=== PATIENT | female | born 1980 | race African-American/Black ===

== ENCOUNTER 2016-08-10 09:46 | Emergency (ER) | payer MEDICAID ==
[~2016-08-10] VITALS: Ht 162.6 cm; Wt 140.0 kg
[~2016-08-10 09:46] MED LIST: MACR100C37 PO; PREN0.01 PO
[2016-08-10 09:47] VITALS: BP 140/77; PULSE 83; RESP 12; TEMP 98.4; O2SAT 98
--- NOTE | 2016-08-10 11:23 | PD ---
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 Patient states that ever since her delivery she has had irregular bleeding. She'll bleed for 2 days and then it' ll resolve and she'll have bleeding again. Bleeding is mild, never having up to where she has to use more than 3 pads/tampons in a day. She is concerned that her vaginal discharge may be abnormal as she states that her partner, whom she had sex with while still , was diagnosed with Trichomonas. Patient has not had any vaginal intercourse since . She has yet to follow up with Dr. 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 DEPOSIT ENTRY CLERK [facility] Past Medical History Diminished Hearing: No ?: Unknown : 3 Para: 1 Miscarriage: 1 Social History Alcohol Use: No Tobacco Use: No Substance Use: No Allergies-Medications (Allergen,Severity, Reaction): Coded Allergies: No Known Allergies (Verified , 10/05/10) Reported Meds & Prescriptions Reported Meds & Active Scripts Active Macrodantin (Nitrofurantoin Macrocrystals) 100 Mg Cap 100 Mg PO BID Vit ( Plus) (Prenat Multivit/Erhard/Iron/Folic Ac) Tab 1 Tab PO DAILY Review of Systems Except as stated in HPI: all other systems reviewed are Neg Physical Exam Narrative GENERAL: Well-appearing female in no acute distress SKIN: Warm and dry. HEAD: Normocephalic. EYES: no scleral icterus. No injection or drainage. ENT: Mucous membranes pink and moist. NECK: Supple CARDIOVASCULAR: Regular rate and rhythm. RESPIRATORY: No accessory muscle use. GASTROINTESTINAL: Abdomen soft, non-tender, nondistended. Obese GENITOURINARY: Brownish vaginal discharge, with dried blood, no cervical erythema. Unremarkable bimanual exam MUSCULOSKELETAL: Normal gait NEUROLOGICAL: Awake and alert. Normal speech. PSYCHIATRIC: Appropriate mood and affect; insight and judgment normal. Data Data Last Documented VS Vital Signs Date Time Temp Pulse Resp B/P Pulse Ox O2 Delivery O2 Flow Rate FiO2 08/10/16 09:47 98.4 83 12 140/77 98 Room Air Orders Gc And Chlamydia Pcr (2/14/17 10:57) Wet Prep Profile (08/10/16 10:57) Labs Laboratory Tests Test 08/10/16 11:07 Clue Cells (Wet Prep) NONE SEEN Vaginal Trichomonas (Wet Prep) NONE SEEN Vaginal Yeast (Wet Prep) NONE SEEN MDM Medical Decision Making Medical Screen Exam Complete: Yes Emergency Medical Condition: Yes Medical Record Reviewed: Yes Differential Diagnosis 35-year-old female here with complaint of irregular vaginal bleeding since vaginal delivery 8 weeks ago, questionably abnormal vaginal discharge. Symptoms seem most consistent with normal menstrual irregularities. She does not have any heavy bleeding or cramping to suggest retained products. On exam here, her her blood is old, brownish tinged vaginal discharge. Her discharge appears physiologic. No risk of given lack of intercourse since delivery. With her possible trichomonas exposure STDs are on the differential though less likely. Narrative Course GC and chlamydia were sent but I would not empirically treat her based on her symptoms at this time. Wet prep was unremarkable. Patient was reassured and encouraged to follow up with DIVIDEND DEPOSIT ENTRY CLERK for visit. Diagnosis Primary Impression: Vaginal discharge Referrals: BRITTANEY COVINGTON M.D. call for appointment Additional Instructions: Wetprep today was negative for trichomonas, bacterial vaginosis, or yeast infection. Followup with Dr. Naidu for post appointment. Med/Other Pt SpecificInfo: No Change to Meds Disposition: 01 DISCHARGE HOME Condition: Jo Stringer MD Aug 10, 2016 11:23
[2016-08-10 17:09] LABS: CHLAMYDIA PCR NOT DETECTED (NOT DETECT); NEISSERIA PCR NOT DETECTED (NOT DETECT)
== END 2016-08-10 11:35 | disposition home or self-care (01) ==
LOC: NETRI 09:46
DX: N89.8 Other specified noninflammatory disorders of vagina (principal); Z20.2 Contact with and (suspected) exposure to infections with a predominantly sexual mode of transmission
CPT/HCPCS: 87210; 87491; 87591; 99283

== ENCOUNTER 2017-02-07 15:44 | Emergency (ER) | payer MEDICAID ==
[~2017-02-07] VITALS: Ht 162.6 cm; Wt 136.0 kg
[2017-02-07 15:45] VITALS: BP 142/87; PULSE 95; RESP 20; TEMP 100.4; O2SAT 99
--- NOTE | 2017-02-07 15:52 | PD ---
Physical Exam Time Seen by Provider: 15:52 Narrative 36yo F c/o RUQ abd pain x 2-3 weeks. Denies N, V, Fever. Fever in triage 100.4 Patient seen in triage. VS reviewed. Awaiting bed placement. Data Data Last Documented VS Vital Signs Date Time Temp Pulse Resp B/P Pulse Ox O2 Delivery O2 Flow Rate FiO2 02/07/17 15:45 100.4 95 20 142/87 99 Room Air MDM Supervised Visit with TEODORO: Diana Vargas Feb 07, 2017 15:52
--- NOTE | 2017-02-07 16:49 | PD ---
HPI . pelvic pain x 5 months Chief Complaint: Abdominal Pain Time Seen by Provider: 16:49 Travel History International Travel<30 days: No Contact w/Intl Traveler<30days: No Traveled to known affect area: No History of Present Illness HPI 36-year-old female who recently had tubal ligation in August of this year here now complaining of lower abdominal pain that has been going on for the past 5 months. The pain is located in the pelvic area. She says her partner was recently tested for STDs and negative and she is here for similar. She admits to a slight discharge that seems clear. She admits to unprotected sex. She wants to be checked for HPV etc and wants to make sure "down there" looks ok. PFSH Past Medical History Diminished Hearing: No ?: Not LMP: december : 3 Para: 1 Miscarriage: 1 Social History Alcohol Use: No Tobacco Use: No Substance Use: No Allergies-Medications (Allergen,Severity, Reaction): Coded Allergies: No Known Allergies (Verified , 10/05/10) Reported Meds & Prescriptions Reported Meds & Active Scripts Active Review of Systems General / Constitutional: No: Fever Eyes: No: Visual changes HENT: No: Headaches Cardiovascular: No: Chest Pain or Discomfort Respiratory: No: Shortness of Breath Gastrointestinal: No: Abdominal Pain Genitourinary: Positive: Pelvic Pain, Discharge, No: Dysuria Musculoskeletal: No: Pain Skin: No Rash Neurologic: No: Weakness Psychiatric: No: Depression Endocrine: No: Polydipsia Hematologic/Lymphatic: No: Easy Bruising Physical Exam Narrative GENERAL: AAO x 3, no acute distress, Well-nourished, well-developed patient. mobidly obese SKIN: Warm and dry. No visible rashes or bruising. HEAD: Normocephalic and atraumatic. EYES: No scleral icterus. No injection or drainage. EOM intact, PERRLA ENT: No nasal drainage noted. Mucous membranes pink. Airway patent. NECK: Supple, trachea midline. No JVD. CARDIOVASCULAR: Regular rate and rhythm without murmurs, gallops, or rubs. RESPIRATORY: Breath sounds equal bilaterally. No accessory muscle use. No rhonchi or rales. GASTROINTESTINAL: Abdomen soft, non-tender, nondistended. PELVIC: MO RN present: + vaginal discharge and cervical motion tenderness EXTREMITIES: No cyanosis or edema. BACK: Nontender without obvious deformity. No CVA tenderness. NEURO: CN II-12 intact, senior test analyst strength normal b/l, UE and LE 5/5, no focal deficits PSYCH: AAO x 3, normal affect. Data Data Last Documented VS Vital Signs Date Time Temp Pulse Resp B/P Pulse Ox O2 Delivery O2 Flow Rate FiO2 02/07/17 18:46 99.4 02/07/17 15:45 95 20 142/87 99 Room Air Orders Gc And Chlamydia Pcr (02/07/17 17:02) Wet Prep Profile (02/07/17 17:02) Complete Blood Count With Diff (02/07/17 17:03) Comprehensive Metabolic Panel (02/07/17 17:) Lipase (02/07/17 17:) Lactic Acid (02/07/17 17:03) Urinalysis - C+S If Indicated (02/07/17 17:03) Iv Access Insert/Monitor (02/07/17 17:03) Ecg Monitoring (02/07/17 17:03) Oximetry (02/07/17 17:03) Sodium Chloride 0.9% Flush (Ns Flush) (02/07/17 17:15) Blood Culture (02/07/17 17:03) Ceftriaxone Inj (Rocephin Inj) (02/07/17 19:00) Lidocaine 1% Inj (50 Ml) (Xylocaine 1% I (02/07/17 19:00) Azithromycin Powd Pack (Zithromax Powd P (02/07/17 19:00) Ceftriaxone Inj (Rocephin Inj) (02/07/17 19:00) Labs Laboratory Tests Test 02/07/17 02/07/17 17:22 17:40 White Blood Count 7.3 TH/MM3 Red Blood Count 4.53 MIL/MM3 Hemoglobin 13.1 GM/DL Hematocrit 37.6 % Mean Corpuscular Volume 83.1 FL Mean Corpuscular Hemoglobin 29.0 PG Mean Corpuscular Hemoglobin 34.9 % Concent Red Cell Distribution Width 13.3 % Platelet Count 232 TH/MM3 Mean Platelet Volume 8.9 FL Neutrophils (%) (Auto) 48.9 % Lymphocytes (%) (Auto) 43.0 % Monocytes (%) (Auto) 5.2 % Eosinophils (%) (Auto) 2.3 % Basophils (%) (Auto) 0.6 % Neutrophils # (Auto) 3.6 TH/MM3 Lymphocytes # (Auto) 3.1 TH/MM3 Monocytes # (Auto) 0.4 TH/MM3 Eosinophils # (Auto) 0.2 TH/MM3 Basophils # (Auto) 0.0 TH/MM3 CBC Comment DIFF FINAL Differential Comment Urine Color YELLOW Urine Turbidity HAZY Urine pH 6.0 Urine Specific Noti 1.032 Urine Protein TRACE mg/dL Urine Glucose (UA) NEG mg/dL Urine Ketones NEG mg/dL Urine Occult Blood NEG Urine Nitrite NEG Urine Bilirubin NEG Urine Urobilinogen 2.0 MG/DL Urine Leukocyte Esterase NEG Urine RBC 1 /hpf Urine WBC 1 /hpf Urine Squamous Epithelial 6 /hpf Cells Urine Mucus FEW /lpf Microscopic Urinalysis Comment CULT NOT INDICATED Sodium Level 138 MEQ/L Potassium Level 3.7 MEQ/L Chloride Level 105 MEQ/L Carbon Dioxide Level 24.3 MEQ/L Anion Gap 9 MEQ/L Blood Urea Nitrogen 13 MG/DL Creatinine 0.85 MG/DL Estimat Glomerular Filtration 93 ML/MIN Rate Random Glucose 83 MG/DL Lactic Acid Level 0.5 mmol/L Calcium Level 8.8 MG/DL Total Bilirubin 0.5 MG/DL Aspartate Amino Transf 12 U/L (AST/SGOT) Alanine Aminotransferase 18 U/L (ALT/SGPT) Alkaline Phosphatase 154 U/L Total Protein 8.2 GM/DL Albumin 3.5 GM/DL Lipase 135 U/L Clue Cells (Wet Prep) NONE SEEN Vaginal Trichomonas (Wet Prep) NONE SEEN Vaginal Yeast (Wet Prep) NONE SEEN MDM Medical Decision Making Medical Screen Exam Complete: Yes Emergency Medical Condition: Yes Medical Record Reviewed: Yes Differential Diagnosis PID, vaginitis, Gonorrhea, Chlamydia, Narrative Course 36-year-old female here with complaints of pelvic discomfort and vaginal discharge. On examination there was no reproducible abdominal or pelvic pain. Pelvic exam revealed slight discharge that was clear, but there was cervical motion tenderness present. Samples were collected. There is no evidence of BV, trichomoniasis or yeast. I discussed this with the patient. I explained that gonorrhea and chlamydia are still pending. However, with her cervical motion tenderness I do recommend prophylactic treatment for PID. She has accepted this recommendation. Rocephin and azithromycin here in the ED. I recommend outpatient follow-up for her routine Pap smear. I have discussed this case with my attending Dr. Carballo. He is in agreement with the recommendations. Patient verbalized understanding of instructions, questions were answered, and thanked me for their care. I advised them if their condition worsens, please return to the nearest emergency room for further care. Diagnosis Primary Impression: Vaginal discharge Additional Impression: PID (acute pelvic inflammatory disease) Referrals: Mobility Engineer Patient Instructions: General Instructions Additional Instructions: Please follow-up with the engineer conductor for routine Pap smear. Disposition: 01 DISCHARGE HOME Condition: Stable Sasha Ledesma Feb 07, 2017 16:49
[2017-02-07] MEDS ORDERED: SODIUM CHLORIDE 0.9% FLUSH 10 ML FLUSH IV FLUSH PRN (17:15)
[2017-02-07 17:54] LABS: AUTOMATED NEUTROPHIL # 3.6 TH/MM3 (1.8-7.7); BASOPHIL % 0.6 % (0.0-2.0); EOSINOPHIL # 0.2 TH/MM3 (0-0.4); EOSINOPHIL % 2.3 % (0.0-4.0); HEMATOCRIT 37.6 % (35.0-46.0); HEMO FLAGS DIFF FINAL; LYMPHOCYTE # 3.1 TH/MM3 (1.0-4.8); MEAN CELL VOLUME 83.1 FL (80.0-100.0); MEAN CORPUSCULAR HGB CONC 34.9 % (32.0-36.0); MONO % 5.2 % (0.0-8.0); NEUT % 48.9 % (16.0-70.0); PLATELET COUNT 232 TH/MM3 (150-450); RED BLOOD COUNT 4.53 MIL/MM3 (4.00-5.30); RED CELL DISTRIBUTION WIDTH 13.3 % (11.6-17.2); WHITE BLOOD COUNT 7.3 TH/MM3 (4.0-11.0)
[2017-02-07 17:58] LABS: BLOOD, URINE NEG (NEG); COMMENT (UR) CULT NOT INDICATED; CULTURE IF INDICATED CULT NOT INDICATED; GLUCOSE,URINE NEG (NEG); KETONE, URINE NEG (NEG); MUCUS URINE FEW /lpf (OCC); NITRITE,URINE NEG (NEG); SQUAMOUS EPITHELIAL CELL URINE 6 /hpf (0-5); URINE COLOR YELLOW (YELLW/STRAW)
[2017-02-07 18:07] LABS: ALT (GPT) 18 U/L (10-53); ANION GAP 9 MEQ/L (5-15); AST (GOT) 12 U/L (15-37); BICARBONATE 24.3 MEQ/L (21.0-32.0); BLOOD UREA NITROGEN 13 MG/DL (7-18); CHLORIDE 105 MEQ/L (98-107); GLOMERULAR FILTRATION RATE 93 ML/MIN (>89); POTASSIUM 3.7 MEQ/L (3.5-5.1); SODIUM (NA) 138 MEQ/L (136-145)
[2017-02-07 18:10] LABS: ALKALINE PHOSPHATASE 154 U/L (45-117); TOTAL BILIRUBIN ADULT 0.5 MG/DL (0.2-1.0)
[2017-02-07 18:46] VITALS: TEMP 99.4
[2017-02-07] MEDS ORDERED: LIDOCAINE HCL 1% 50 ML VIAL IM ONE (19:00)
[2017-02-07] MEDS ORDERED: cefTRIAXone 250 MG VIAL IM ONE (19:00)
[2017-02-07] MEDS ORDERED: cefTRIAXone INJ 250 MG in SODIUM CHLORIDE 0.9% INJ 25 ML IV ONE (19:00)
[2017-02-07] MEDS ORDERED: AZITHROMYCIN PWD FOR SUSP 1 GM PACKET PO ONE (19:00)
[2017-02-07 19:58] LABS: CHLAMYDIA PCR NOT DETECTED (NOT DETECT); NEISSERIA PCR NOT DETECTED (NOT DETECT)
== END 2017-02-07 20:12 | disposition home or self-care (01) ==
LOC: NEPD 15:44
DX: N73.0 Acute parametritis and pelvic cellulitis (principal)
CPT/HCPCS: 80053; 81001; 83605; 83690; 85025; 87040; 87210; 87491; 87591; 96365; 99284; J0696